=== PATIENT | male | born 1955 | race Caucasian/White ===

== ENCOUNTER 2017-08-28 22:01 | Observation (INO) | payer OTHER ==
[2017-08-28 20:25] VITALS: BP 120/40; PULSE 61; RESP 16; TEMP 98.5; O2SAT 93
[2017-08-28] MEDS: SODIUM CHLORIDE 0.9% FLUSH 10 ML FLUSH IV FLUSH SCH (21:00)
[~2017-08-28 22:01] MED LIST: ACETAMINOPHEN 500 MG CPLT PO PRN; ACETAMINOPHEN/HYDROcodone 325 MG/7.5 MG TAB PO PRN; HEPARIN 25,000 UNITS-D5W 250 ML - PREMIX IV PRN; HEPARIN-D5W 25,000 U/250 ML 250 ML IV PRN; MORPHINE SULFATE 2 MG/ML INJ IV PUSH PRN; NITROGLYCERIN 0.4 MG SL 25 TABS/BTL SL PRN; OMEP20TA93 PO; SODIUM CHLORIDE 0.9% FLUSH 10 ML FLUSH IV FLUSH PRN
[2017-08-28 22:33] VITALS: PULSE 61
--- NOTE | 2017-08-28 23:25 | HHI.HP ---
[facility] Service [facility] Hospitalists . Primary Care Physician No Primary Care Physician . Admission Diagnosis NSTEMI . Diagnoses: (1) NSTEMI (non-ST elevated myocardial infarction) Chief Complaint: High blood pressure and "felt funny" Travel History International Travel<30 Days: No Contact w/Intl Traveler <30 Da: No History of Present Illness Mr. Smith is a pleasant 62 y/o male who recently relocated from [place] to [facility] who presented to the ER on 08/28/17 complaining of high blood pressure and not feeling well. Initial workup in the [place] ER revealed a Troponin I of 0.08 and the ER physician spoke with the weighing station operator rags laborer who recommended admission to [facility] and initiation of heparin drip. The patient is admitted to the hospitalist service for medical management and cardiology consultation. The patient is seen in his hospital room shortly after arrival from [place]. The patient states that he was at home with his and felt a tingling in his left hip. He had his BP checked and it was 170's/90's. He was given a baby aspirin and continued to feel "funny". He started to have left chest "muscle pain" and left arm numbness and tingling. His gave him one of her Losartan tablets (since he'd been on this medication "years ago" for hypertension). He was taken to the ER and his symptoms resolved. He is currently pain free. He incidentally notes a few seconds of parietal head pressure that occurred two days ago. His son-in-law reports that he looked pale and was diaphoretic when he had the episode of chest pain. The patient denies nausea, palpitations, or shortness of breath. He denies any recent illness, SOB, fever, chills, nausea, vomiting, or diarrhea. The patient had a similar episode one year ago and was hospitalized for 24 hours in [facility] with negative workup. The patient had a cardiac cath 4 years ago that was reportedly normal. The patient had bradycardia about 10 years ago and there was a recommendation from a rags laborer for permanent pacemaker placement. A second rags laborer told him that he did not need it. He reports the heart "muscle" was "weak" and he had a heart rate in the 30's at the time. Review of Systems Except as stated in HPI: all other systems reviewed are Neg Past Family Social History Past Medical History History of Hypertension GERD Bradyarrhythmia Possible history of cardiomyopathy . Past Surgical History Cardiac catheterization four years ago - normal per patient and family . Reported Medications Reported Meds & Active Scripts Active Reported Omeprazole 20 Mg Tab 20 Mg PO DAILY Baby ASA daily . Allergies: Coded Allergies: No Known Allergies (Unverified , 08/28/17) Family History Mother alive and well in 80's Father's medical history is unknown to patient No family history of heart disease . Social History Tobacco: doesn't smoke, denies ever smoking Alcohol: occasional social beer Illicit Drugs: denies . Physical Exam Physical Exam CONSTITUTIONAL: This is a pleasant overweight male patient, in no apparent distress. INTEGUMENTARY: No rashes. Cool and dry. HEAD: Atraumatic. Normocephalic. EYES: No scleral icterus. No injection or drainage. ENT: Nose without bleeding, purulent drainage. NECK: Trachea midline. No JVD or lymphadenopathy. CARDIOVASCULAR: Regular rate and rhythm without murmurs, gallops, or rubs. RESPIRATORY: Clear to auscultation. Breath sounds equal bilaterally. No wheezes , rales, or rhonchi. GASTROINTESTINAL: Abdomen soft, non-tender, nondistended. No guarding. MUSCULOSKELETAL: Extremities without clubbing, cyanosis, or edema. No calf tenderness. NEUROLOGICAL: Awake and alert. Motor and sensory grossly within normal limits. Normal speech. . Laboratory Laboratory Tests Test 08/28/17 17:44 White Blood Count 5.4 TH/MM3 Red Blood Count 4.88 MIL/MM3 Hemoglobin 14.4 GM/DL Hematocrit 41.3 % Mean Corpuscular Volume 84.6 FL Mean Corpuscular Hemoglobin 29.5 PG Mean Corpuscular Hemoglobin Concent 34.9 % Red Cell Distribution Width 12.7 % Platelet Count 212 TH/MM3 Mean Platelet Volume 9.8 FL Immature Granulocyte % (Auto) 0.2 % Neutrophils (%) (Auto) 61.6 % Lymphocytes (%) (Auto) 30.3 % Monocytes (%) (Auto) 6.4 % Eosinophils (%) (Auto) 0.9 % Basophils (%) (Auto) 0.6 % Immature Granulocyte # (Auto) 0.0 TH/MM3 Neutrophils # (Auto) 3.4 TH/MM3 Lymphocytes # (Auto) 1.7 TH/MM3 Monocytes # (Auto) 0.4 TH/MM3 Eosinophils # (Auto) 0.1 TH/MM3 Basophils # (Auto) 0.0 TH/MM3 CBC Comment DIFF FINAL Differential Comment Prothrombin Time 10.0 SEC Prothromb Time International Ratio 1.0 RATIO Activated Partial Thromboplast Time 23.5 SEC Blood Urea Nitrogen 15 MG/DL Creatinine 0.90 MG/DL Random Glucose 90 MG/DL Calcium Level 9.5 MG/DL Magnesium Level 2.3 MG/DL Sodium Level 143 MEQ/L Potassium Level 4.0 MEQ/L Chloride Level 107 MEQ/L Carbon Dioxide Level 28.0 MEQ/L Anion Gap 8 MEQ/L Estimat Glomerular Filtration Rate 85 ML/MIN Total Creatine Kinase 116 U/L Creatine Kinase MB 1.2 NG/ML Troponin I 0.08 NG/ML . Imaging Head CT - no acute disease CXR - negative for acute CP process Caprini VTE Risk Assessment Caprini VTE Risk Assessment: Mod/High Risk (score >= 2) Caprini Risk Assessment Model Point Value = 1 Point Value = 2 Point Value = 3 Point Value = 5 Age 41-60 Minor surgery BMI > 25 kg/m2 Swollen legs Varicose veins or History of unexplained or recurrent spontaneous Oral contraceptives or hormone replacement Sepsis (< 1 month) Serious lung disease, including pneumonia (< 1 month) Abnormal pulmonary function Acute myocardial infarction Congestive heart failure (< 1 month) History of inflammatory bowel disease Medical patient at bed rest Age 61-74 Arthroscopic surgery Major open surgery (> 45 min) Laparoscopic surgery (> 45 min) Malignancy Confined to bed (> 72 hours) Immobilizing plaster cast Central venous access Age >= 75 History of VTE Family history of VTE Factor V Leiden Prothrombin [id number] Lupus anticoagulant Anticardiolipin antibodies Elevated serum homocysteine Heparin-induced thrombocytopenia Other congenital or acquired thrombophilia Stroke (< 1 month) Elective arthroplasty Hip, pelvis, or leg fracture Acute spinal cord injury (< 1 month) Prophylaxis Regimen Total Risk Factor Score Risk Level Prophylaxis Regimen 0-1 Low Early ambulation 2 Moderate Order ONE of the following: *Sequential Compression Device (SCD) *Heparin 5000 units SQ BID 3-4 Higher Order ONE of the following medications: *Heparin 5000 units SQ TID *Enoxaparin/Lovenox 40 mg SQ daily (WT < 150 kg, CrCl > 30 mL/min) *Enoxaparin/Lovenox 30 mg SQ daily (WT < 150 kg, CrCl > 10-29 mL/min) *Enoxaparin/Lovenox 30 mg SQ BID (WT < 150 kg, CrCl > 30 mL/min) AND/OR *Sequential Compression Device (SCD) 5 or more Highest Order ONE of the following medications: *Heparin 5000 units SQ TID (Preferred with Epidurals) *Enoxaparin/Lovenox 40 mg SQ daily (WT < 150 kg, CrCl > 30 mL/min) *Enoxaparin/Lovenox 30 mg SQ daily (WT < 150 kg, CrCl > 10-29 mL/min) *Enoxaparin/Lovenox 30 mg SQ BID (WT < 150 kg, CrCl > 30 mL/min) AND *Sequential Compression Device (SCD) Assessment and Plan Problem List: (1) NSTEMI (non-ST elevated myocardial infarction) ICD Code: I21.4 - Non-ST elevation (NSTEMI) myocardial infarction Assessment and Plan Mr. Smith is a pleasant 62 y/o male who recently relocated from [place] to [facility] who presented to the ER on 08/28/17 complaining of high blood pressure and not feeling well. Initial workup in the [place] ER revealed a Troponin I of 0.08 and the ER physician spoke with the weighing station operator rags laborer who recommended admission to [facility] and initiation of heparin drip. The patient is admitted to the hospitalist service for medical management and cardiology consultation. NSTEMI - Heparin drip for anticoagulation - serial EKGs and cardiac enzymes for ACS - initial EKG was personally reviewed by me and showed NSR with HR 65; initial troponin I was 0.08. Continue to follow results. - Nitroglycerin q5min PRN chest pain - Morphine, [place], and tylenol as needed for pain - CXR - image personally reviewed: negative for acute Cardiopulmonary process - continuous cardiac telemetry to monitor for arrhythmia - Cardiology consultation - appreciate assistance - NPO History of hypertension - taken off antihypertensive medications by PCP in [place] many years ago - BP currently controlled - continue to monitor Left hip and left arm paresthesias - resolved - Head CT in ED - no acute disease - Continue to monitor DVT prophylaxis - heparin drip for now Discussed Condition With Patient, patient's , patient's daughter, patient's son-in-law, and RN . Physician Certification 2 Midnight Certification Type: Admission for Inpatient Services Order for Inpatient Services The services are ordered in accordance with Medicare regulations or non- Medicare payer requirements, as applicable. In the case of services not specified as inpatient-only, they are appropriately provided as inpatient services in accordance with the 2-midnight benchmark. Estimated LOS (days): 3 days is the estimated time the patient will need to remain in the hospital, assuming treatment plan goals are met and no additional complications. Post-Hospital Plan: Not yet determined Lesia Palomino Aug 28, 2017 23:25
[2017-08-29] VITALS: BP 122/64; PULSE 67; PULSE 80; RESP 16; TEMP 97.8; O2SAT 93
[2017-08-29 04:00] VITALS: BP 115/55; PULSE 60; RESP 16; TEMP 98.1; O2SAT 96
[2017-08-29 04:08] VITALS: PULSE 55
[2017-08-29 06:46] LABS: ALBUMIN 3.7 GM/DL (3.4-5.0); AST (GOT) 18 U/L (15-37); BICARBONATE 25.1 MEQ/L (21.0-32.0); BLOOD UREA NITROGEN 13 MG/DL (7-18); CALCIUM 9.2 MG/DL (8.5-10.1); CHLORIDE 107 MEQ/L (98-107); CHOLESTEROL 186 MG/DL (120-200); CREATININE 0.89 MG/DL (0.60-1.30); GLOMERULAR FILTRATION RATE 86 ML/MIN (>89); GLUCOSE,RANDOM 89 MG/DL (74-106); SODIUM (NA) 141 MEQ/L (136-145)
[2017-08-29 06:47] LABS: ALT (GPT) 35 U/L (12-78); TRIGLYCERIDES 68 MG/DL (42-150)
[2017-08-29 06:52] LABS: ALKALINE PHOSPHATASE 66 U/L (45-117); CHOLESTEROL/ HDL RATIO 3.53 RATIO; HDL CHOLESTEROL 52.6 MG/DL (40.0-60.0); LDL CHOLESTEROL 120 MG/DL (0-99); TOTAL BILIRUBIN ADULT 1.4 MG/DL (0.2-1.0); TOTAL PROTEIN 6.8 GM/DL (6.4-8.2); TROPONIN I 0.07 NG/ML (0.02-0.05)
--- NOTE | 2017-08-29 07:59 | PD.CONS ---
HPI Service cardiology Consult Requested By Reason for Consult NSTEMI Primary Care Physician No Primary Care Physician History of Present Illness 62 yo M with no prior cardiac history who presented to [place] ER yesterday with elevated BP. Patient states he's recently moved from [place] to [place]; yesterday he was painting his new home and felt unwell with left hip tingling and left chest "muscle" pain; his systolic blood pressure was checked at 160 and he took a baby aspirin. He didn't feel any better so he went to the ED, troponin at that time was 0.08 and blood pressure was elevated. He has been transferred to [facility] for further workup. He currently is feeling well and repeat troponin is 0.07. EKG does not show any concerning ST segment or T wave changes. As of note, he had a normal cardiac catheterization several years ago due to bradycardia and he reports exercising at the gym on a regular basis without difficulty. He denies chest pain, sob or palpitations. (Becky Hawkins) Review of Systems Consitutional: DENIES: Fatigue, Chills, Weight gain, Weight loss Respiratory: DENIES: See HPI, Cough, Snoring, Shortness of breath, Wheezing, Sputum production Cardiovascular: DENIES: See HPI, Chest pain, Palpitations, Syncope, Tachycardia Gastrointestinal: DENIES: Nausea, Vomiting, Change in bowel habits, Reflux, Bloody stools, Melena (Becky Hawkins) Past Family Social History Allergies: Coded Allergies: No Known Allergies (Unverified , 08/28/17) Past Medical History History of Hypertension GERD Bradyarrhythmia Possible history of cardiomyopathy Past Surgical History Cardiac catheterization four years ago - normal per patient and family . Reported Medications Reported Meds & Active Scripts Active Reported Omeprazole 20 Mg Tab 20 Mg PO DAILY Active Ordered Medications Current Medications Medications (Trade) Dose Ordered Sig/Ave Route Start Time Stop Time Status Last Admin (NS Flush) 2 ml BID IV FLUSH 08/28/17 21:00 (NS Flush) 2 ml UNSCH PRN IV FLUSH 08/28/17 19:45 (Aspirin) 325 mg DAILY PO 08/29/17 09:00 (Nitrostat Sl) 0.4 mg Q5M PRN SL 08/28/17 19:45 (Tylenol) 500 mg Q4H PRN PO 08/28/17 19:45 ([place] 7.5-325 Mg) 1 tab Q4H PRN PO 08/28/17 19:45 (Morphine Inj) 2 mg Q3H PRN IV PUSH 08/28/17 20:30 (Protonix) 20 mg DAILY PO 08/29/17 09:00 Heparin Sodium/ Dextrose 250 ml @ 10 mls/hr TITRATE PRN IV 08/28/17 22:00 Family History Mother alive and well in 80's Father's medical history is unknown to patient No family history of heart disease Social History Tobacco: doesn't smoke, denies ever smoking Alcohol: occasional social beer Illicit Drugs: denies (Becky Hawkins) Physical Exam Vital Signs Vital Signs Date Time Temp Pulse Resp B/P (MAP) Pulse Ox O2 Delivery O2 Flow Rate FiO2 08/29/17 04:08 55 08/29/17 04:00 98.1 60 16 115/55 (75) 96 08/29/17 00:15 Room Air 08/29/17 00:00 80 08/29/17 00:00 97.8 67 16 122/64 (83) 93 08/28/17 22:33 61 08/28/17 20:25 98.5 61 16 120/40 (66) 93 Physical Exam GENERAL: SKIN: Warm and dry. HEAD: Atraumatic. Normocephalic. EYES: Pupils equal and round. No scleral icterus. No injection or drainage. ENT: No nasal bleeding or discharge. NECK: Trachea midline. No JVD. CARDIOVASCULAR: Regular rate and rhythm. no murmurs RESPIRATORY: No accessory muscle use. Clear to auscultation. Breath sounds equal bilaterally. GASTROINTESTINAL: Abdomen soft, non-tender, nondistended. MUSCULOSKELETAL: Extremities without clubbing, cyanosis, or edema. No obvious deformities. NEUROLOGICAL: Awake and alert. No obvious cranial nerve deficits. Normal speech. PSYCHIATRIC: Appropriate mood and affect; insight and judgment normal. Laboratory Laboratory Tests Test 08/29/17 04:55 Activated Partial Thromboplast Time 45.3 Blood Urea Nitrogen 13 Creatinine 0.89 Random Glucose 89 Total Protein 6.8 Albumin 3.7 Calcium Level 9.2 Alkaline Phosphatase 66 Aspartate Amino Transf (AST/SGOT) 18 Alanine Aminotransferase (ALT/SGPT) 35 Total Bilirubin 1.4 Sodium Level 141 Potassium Level 3.6 Chloride Level 107 Carbon Dioxide Level 25.1 Anion Gap 9 Estimat Glomerular Filtration Rate 86 Total Creatine Kinase 86 Troponin I 0.07 Triglycerides Level 68 Cholesterol Level 186 LDL Cholesterol 120 HDL Cholesterol 52.6 Cholesterol/HDL Ratio 3.53 (Becky Hawkins) Result Diagram: 08/29/17 0455 Assessment and Plan Problem List: (1) NSTEMI (non-ST elevated myocardial infarction) ICD Codes: I21.4 - Non-ST elevation (NSTEMI) myocardial infarction Assessment and Plan 62 yo M with no prior cardiac history who presented to [place] ER yesterday with elevated BP. Patient states he's recently moved from [place] to [place]; yesterday he was painting his new home and felt unwell with left hip tingling and left chest "muscle" pain; his systolic blood pressure was checked at 160 and he took a baby aspirin. He didn't feel any better so he went to the ED, troponin at that time was 0.08 and blood pressure was elevated. He has been transferred to [facility] for further workup. He currently is feeling well and repeat troponin is 0.07. EKG does not show any concerning ST segment or T wave changes. As of note, he had a normal cardiac catheterization several years ago due to bradycardia and he reports exercising at the gym on a regular basis without difficulty NSTEMI- borderline troponin elevation; likely demand mediated due to spike in BP yesterday. Will assess for ischemia with lexiscan. keep npo ok to stop heparin HTN- BP has improved. recommend outpatient PCP follow up for BP management (Becky Hawkins) Assessment and Plan agree with above elizabeth today monitor BP if negative, DC with BP/HR diary. (Brian Razo MD) Becky Hawkins Aug 29, 2017 07:59 Brian Razo MD Aug 29, 2017 08:08
[2017-08-29 08:00] VITALS: BP 108/66; PULSE 57; RESP 20; TEMP 98; O2SAT 91
[2017-08-29] MEDS: SODIUM CHLORIDE 0.9% FLUSH 10 ML FLUSH IV FLUSH SCH (08:59)
[2017-08-29] MEDS ORDERED: PANTOPRAZOLE SOD 20 MG DELAYED RELEASE TAB PO SCH (09:00)
[2017-08-29] MEDS ORDERED: ASPIRIN 325 MG TAB PO SCH (09:00)
[2017-08-29] MEDS ORDERED: REGADENOSON INJ 0.4 MG/5 ML SYR ONE (09:42)
--- NOTE | 2017-08-29 11:07 | RADRPT ---
EXAM DATE/TIME: 08/29/2017 09:31 [facility] COMPARISON: No previous studies available for comparison. INDICATIONS : Substernal chest pain. Angina. DOSE: 26.2 mCi Tc99m Myoview at stress. 8.5 mCi Tc99m Myoview at rest. 0.4 mg Lexiscan STRESS SYMPTOMS: Dyspnea. EJECTION FRACTION: > 70% MEDICAL HISTORY : Gastroesophageal reflux disease. Hypertension. SURGICAL HISTORY : None. ENCOUNTER: Initial ACUITY: 1 day PAIN SCALE: 6/10 LOCATION: Substernal chest TECHNIQUE: The patient underwent pharmacologic stress with infusion of prescribed dose. Continuous ECG tracing was monitored during stress. Gated SPECT imaging was performed after stress and conventional SPECT i maging was performed at rest. The examination was performed on a SPECT/CT scanner, both attenuation and non-corrected datasets were reviewed. FINDINGS: DISTRIBUTION: The maximum perfused segment at stress is in the anterior and septal wall. PERFUSION STUDY: The pattern of perfusion at stress is within normal limits. GATED STUDY: There is intact wall motion and thickening without hypokinetic or dyskinetic segments. CONCLUSION: 1. No significant reversibility to suggest ischemia. 2. Normal wall motion with ejection fraction of greater than 70%. RISK CATEGORY: Low (<1% Annual Mortality Rate) Silas Asencio MD on August 29, 2017 at 11:02 Board Certified Radiologist. This report was verified electronically.
[2017-08-29 12:00] VITALS: BP 111/71; PULSE 61; RESP 20; TEMP 97.9; O2SAT 94
[2017-08-29 14:57] LABS: TROPONIN I 0.08 NG/ML (0.02-0.05)
--- NOTE | 2017-08-29 15:51 | EKG ---
Date Performed: 08/29/2017 Time Performed: 00:02:26 PTAGE: 62 years EKG: Sinus rhythm Normal ECG Since the PREVIOUS TRACING , no significant change noted PREVIOUS TRACIN08/28/2017 @0522 DOCTOR: Ceasar Del Rosario Interpretating Date/Time 08/29/2017 15:48:04
--- NOTE | 2017-08-29 15:51 | EKG ---
Date Performed: 08/29/2017 Time Performed: 06:16:08 PTAGE: 62 years EKG: Sinus rhythm Normal ECG Since the PREVIOUS TRACING , no significant change noted PREVIOUS TRACIN08/29/2017 00.02 DOCTOR: Ceasar Del Rosario Interpretating Date/Time 08/29/2017 15:48:40
[2017-08-29 16:30] VITALS: BP 116/75; PULSE 64; RESP 18; TEMP 98; O2SAT 97
[2017-08-29] MEDS ORDERED: ASPI-516 CHEW (17:18)
[2017-08-29] MEDS ORDERED: LIPI10TA PO (17:20)
--- NOTE | 2017-08-29 17:24 | HHI.DCPOC ---
Discharge Care Plan Diagnosis: (1) Chest pain (2) NSTEMI (non-ST elevated myocardial infarction) (3) HTN (hypertension) Goals to Promote Your Health * To prevent worsening of your condition and complications * To maintain your health at the optimal level Directions to Meet Your Goals Take your medications as prescribed Follow your dietary instruction Follow activity as directed Keep your appointments as scheduled Take your immunizations and boosters as scheduled If your symptoms worsen call your PCP, if no PCP go to Urgent Care Center or Emergency Room Smoking is Dangerous to Your Health. Avoid second hand smoke Call the 24-hour hour crisis hotline for domestic abuse at Nicolas Steve MD Aug 29, 2017 17:24
--- NOTE | 2017-08-29 17:35 | HHI.DS ---
Discharge Summary Admission Date Aug 28, 2017 at 22:11 Discharge Date: Aug 29, 2017 Admitting Diagnosis NSTEMI . (1) NSTEMI (non-ST elevated myocardial infarction) ICD Code: I21.4 - Non-ST elevation (NSTEMI) myocardial infarction Diagnosis: Principal Status: Acute (2) HTN (hypertension) ICD Code: I10 - Essential (primary) hypertension Diagnosis: Principal Status: Resolved (3) Chest pain ICD Code: R07.9 - Chest pain, unspecified Diagnosis: Principal Status: Resolved Procedures none Brief History - From Admission Mr. Smith is a pleasant 62 y/o male who recently relocated from [place] to [facility] who presented to the ER on 08/28/17 complaining of high blood pressure and not feeling well. Initial workup in the [place] ER revealed a Troponin I of 0.08 and the ER physician spoke with the international student advisor coal getter who recommended admission to [facility] and initiation of heparin drip. The patient is admitted to the hospitalist service for medical management and cardiology consultation. The patient is seen in his hospital room shortly after arrival from [place]. The patient states that he was at home with his and felt a tingling in his left hip. He had his BP checked and it was 170's/90's. He was given a baby aspirin and continued to feel "funny". He started to have left chest "muscle pain" and left arm numbness and tingling. His gave him one of her Losartan tablets (since he'd been on this medication "years ago" for hypertension). He was taken to the ER and his symptoms resolved. He is currently pain free. He incidentally notes a few seconds of parietal head pressure that occurred two days ago. His son-in-law reports that he looked pale and was diaphoretic when he had the episode of chest pain. The patient denies nausea, palpitations, or shortness of breath. He denies any recent illness, SOB, fever, chills, nausea, vomiting, or diarrhea. The patient had a similar episode one year ago and was hospitalized for 24 hours in [place] with negative workup. The patient had a cardiac cath 4 years ago that was reportedly normal. The patient had bradycardia about 10 years ago and there was a recommendation from a coal getter for permanent pacemaker placement. A second coal getter told him that he did not need it. He reports the heart "muscle" was "weak" and he had a heart rate in the 30's at the time. CBC/BMP: 08/29/17 0455 Significant Findings Laboratory Tests Test 08/29/17 04:55 08/29/17 11:11 08/29/17 14:01 Activated Partial Thromboplast Time 45.3 SEC (24.3-30.1) Total Bilirubin 1.4 MG/DL (0.2-1.0) Estimat Glomerular Filtration Rate 86 ML/MIN (>89) Troponin I 0.07 NG/ML (0.02-0.05) 0.08 NG/ML (0.02-0.05) LDL Cholesterol 120 MG/DL (0-99) Imaging Last Impressions Myocardial Perfusion Scan Nuc Med 08/29/17 0000 Signed Impressions: Service Date/Time: Tuesday, August 29, 2017 09:31 - CONCLUSION: 1. No significant reversibility to suggest ischemia. 2. Normal wall motion with ejection fraction of greater than 70%%. RISK CATEGORY: Low (<1%% Annual Mortality Rate) Silas Asencio MD Chest x-ray no acute disease. Head CT with normal examination. PE at Discharge AAOx3 S1s2 RRR, no MRG clear lungs BL obese abdomen no edema in lower extremities Pt update on day of discharge The patient denies shortness of breath, has minimal chest pain on palpation of the left side of the chest wall. Hospital Course The patient was placed an outpatient observation in the medical floor, monitor on telemetry, no arrhythmias were described. Patient had serial cardiac enzymes which showed minimal elevated troponin at 0.08 which remained stable. Cardiology consulted, ordered a nuclear stress test which was negative. Recommended outpatient follow-up with PCP for blood pressure management. The patient was not started on antihypertensive medication given that blood pressure remained very stable and in the lower side. The patient was started on a statin given that the patient's LDL was abnormally high in the 120s. The rest of the lipid profile was normal. Patient's hemoglobin A1c pending at the time of discharge. Patient also states that at home he had some headache which has resolved. CT of the head is negative for acute intracranial lesion. Chest x-ray also was negative for acute disease. Cardiac troponin elevation thought secondary to be likely due to hypertensive episode. The patient was advised to watch the sodium content of his food. Chest pain likely musculoskeletal since it is reproducible and patient has been lately lifting heavy objects since he recently moved. Pt Condition on Discharge: Stable Discharge Disposition: Discharge Home Discharge Time: > 30 minutes Discharge Instructions DIET: Follow Instructions for: Heart Healthy Diet Activities you can perform: Regular-No Restrictions Activities to Avoid: Strenuous Activity Follow up Referrals: PCP Follow-up - 2 Weeks New Medications: Aspirin (Aspirin) 81 Mg Chew 81 MG CHEW DAILY for Blood Clot Prevention, #31 TAB 0 Refills Atorvastatin (Lipitor) 10 Mg Tab 10 MG PO HS for Cholesterol Management, #30 TAB 0 Refills Continued Medications: Omeprazole (Omeprazole) 20 Mg Tab 20 MG PO DAILY, #30 TAB 0 Refills Nicolas Steve MD Aug 29, 2017 17:35
[2017-08-30 21:01] LABS: HEMOGLOBIN A1C 5.4 % (4.3-6.0)
== END 2017-08-29 19:05 | disposition home or self-care (01) ==
LOC: NEDDLT 22:01 → N04B 22:11
PROVIDERS: ADMIT Hospitalist; ATTEND Hospitalist
DX: I21.4 Non-ST elevation (NSTEMI) myocardial infarction (principal); I20.9 Angina pectoris, unspecified; I10 Essential (primary) hypertension; R20.2 Paresthesia of skin; X50.0XXA Overexertion from strenuous movement or load, initial encounter; K21.9 Gastro-esophageal reflux disease without esophagitis; R00.1 Bradycardia, unspecified; R06.00 Dyspnea, unspecified; R07.2 Precordial pain; R79.89 Other specified abnormal findings of blood chemistry
CPT/HCPCS: 70450; 71046; 78452; 80048; 80053; 80061; 82550; 82552; 83036; 83735; 84484; 85025; 85610; 85730; 93005; 93017; 96365; 96375; 99285; A9502; G0378; J1644; J2785